=== PATIENT | male | born 1985 | race Caucasian/White ===

== ENCOUNTER 2018-01-22 16:00 | Emergency (ER) | payer MEDICAID ==
[2018-01-22] MEDS ORDERED: risperiDONE 1 MG TABLET PO STA (18:34)
--- NOTE | 2018-01-22 18:37 | ED Physician Documentation ---
PD HPI MHE - Stated complaint Stated Complaint: MHE/SI - Chief complaint Chief Complaint: MHE - History obtained from History obtained from: Patient - History of Present Illness Primary symptom: Anxiety (This is a 32-year-old gentleman with history of bipolar disorder, no current psychiatric follow-up here as [place]. He has been manic lately and is having a lot of anxiety all day and every day. Vague suicidal ideation without plan. Wants a mood stabilizer and follow-up.) Review of Systems Constitutional: denies: Fever, Chills Cardiac: denies: Palpitations Respiratory: denies: Dyspnea, Cough GI: denies: Abdominal Pain PD PAST MEDICAL HISTORY - Present Medications Home Medications: Ambulatory Orders Medication Instructions Recorded Confirmed Risperidone [Risperdal] 2 mg PO QPM #30 tablet 01/22/18 - Allergies Allergies/Adverse Reactions: Allergies Allergy/AdvReac Type Severity Reaction Status Date / Time No Known Drug Allergies Allergy Verified 01/22/18 16:46 PD ED PE NORMAL - Vitals Vital signs reviewed: Yes - General General: Alert and oriented X 3, No acute distress - HEENT HEENT: PERRL, EOMI - Neuro Neuro: Alert and oriented X 3, cotton expert 2-12 intact Eye Opening: Spontaneous Motor: Obeys Commands Verbal: Oriented GCS Score: 15 - Psych Psych: Normal mood, Normal affect Results - Vitals Vitals: Vital Signs - 24 hr 01/22/18 01/22/18 16:39 18:49 Temperature 36.7 C Heart Rate 61 63 Respiratory 19 16 Rate Blood Pressure 191/122 H 201/129 H O2 Saturation 99 100 Oxygen O2 Source Room air PD MEDICAL DECISION MAKING - ED course ED course: 32-year-old who is modestly manic but very cogent. No active suicidal ideation with plan and requests outpatient treatment. We discussed options for mood stabilizers. Cost is a restriction as he does not have current insurance and he was given a foundation prescription for Risperdal which compared to most of the mood stabilizers is quite affordable. - Sepsis Event Vital Signs: Vital Signs - 24 hr 01/22/18 01/22/18 16:39 18:49 Temperature 36.7 C Heart Rate 61 63 Respiratory 19 16 Rate Blood Pressure 191/122 H 201/129 H O2 Saturation 99 100 Oxygen O2 Source Room air Departure - Departure Disposition: 01 Home, Self Care Clinical Impression: Bipolar affective disorder Condition: Good Record reviewed to determine appropriate education?: Yes Instructions: ED Manic Depression Prescriptions: Risperidone [Risperdal] 2 mg PO QPM #30 tablet Comments: Follow-up with [facility] at [phone] to schedule psychiatric care and counseling. Your blood pressure was elevated today on check into the emergency department. This does not mean that you have hypertension, it is a common phenomenon to come to the emergency department and have elevated blood pressure. I recommend that you see your primary care physician within the week to have it rechecked when you are feeling better. Discharge Date/Time: 01/22/18 18:50
[2018-01-22 18:50] VITALS: BP 201/129
== END 2018-01-22 18:50 | disposition home or self-care (01) ==
LOC: ED 16:00
DX: F31.9 Bipolar disorder, unspecified (principal); R03.0 Elevated blood-pressure reading, without diagnosis of hypertension
CPT/HCPCS: 99283; A9270

== ENCOUNTER 2018-03-02 20:43 | Emergency (ER) | payer MEDICAID ==
--- NOTE | 2018-03-02 20:49 | ED Physician Documentation ---
PD HPI MHE - Stated complaint Stated Complaint: MHE/SI - History obtained from History obtained from: Patient - History of Present Illness Primary symptom: Suicidal ideation Pain level now: 0 Recently seen: Not recently seen - Additional information Additional information: c/o gradually worsening depression and suicidal thoughts. T+R from this ED last month, was prescribed risperdal which he took as prescribed and has since run out; he says he did not feel any improvement with this medication. He also was seen at [facility] ED a few weeks ago, was prescribed 6 tablets of a benzodiazepine which provided some relief but he had to take split doses due to the small amount prescribed. He has been seen at [facility], but cannot be seen by a prescribing practitioner until he is established with a general practitioner, and his initial appointment to establish with a PMD isn't for another couple of weeks. Tonight, he had increasing thoughts of suicide and he began to formulate specific plans, researching ways to commit suicide and was specifically pondering hanging himself. He told his brother he was having these thoughts, and brother drove patient to ED for evaluation. Review of Systems Cardiac: reports: Reviewed and negative Respiratory: reports: Reviewed and negative GI: reports: Reviewed and negative Neurologic: denies: Headache Psychiatric: reports: Depressed, Suicidal, Anxiety, Insomnia. denies: Homicidal, Hallucinations, Delusions PD PAST MEDICAL HISTORY - Past Medical History Past Medical History: No - Past Surgical History Past Surgical History: No - Present Medications Home Medications: Ambulatory Orders Medication Instructions Recorded Confirmed Risperidone [Risperdal] 2 mg PO QPM #30 tablet 01/22/18 - Allergies Allergies/Adverse Reactions: Allergies Allergy/AdvReac Type Severity Reaction Status Date / Time No Known Drug Allergies Allergy Verified 03/02/18 21:02 PD ED PE NORMAL - Vitals Vital signs reviewed: Yes - General General: Alert and oriented X 3, No acute distress, Well developed/nourished - HEENT HEENT: PERRL, EOMI, Moist mucous membranes - Cardiac Cardiac: RRR, No murmur - Respiratory Respiratory: No respiratory distress, Clear bilaterally - Abdomen Abdomen: Soft, Non tender - Derm Derm: Normal color, Warm and dry - Extremities Extremities: No edema - Neuro Neuro: Alert and oriented X 3, manager integrity 2-12 intact, No motor deficit, No sensory deficit, Normal speech Eye Opening: Spontaneous Motor: Obeys Commands Verbal: Oriented GCS Score: 15 PD ED PE EXPANDED - Psych Psych: Depressed. No: Intoxicated / AOB Results - Vitals Vitals: Vital Signs - 24 hr 03/02/18 03/03/18 03/03/18 20:50 08:39 11:11 Temperature 36.0 C L Heart Rate 50 L 90 90 Respiratory 20 16 18 Rate Blood Pressure 174/102 H 177/100 H 180/99 H O2 Saturation 100 100 03/03/18 13:00 Temperature Heart Rate 90 Respiratory 16 Rate Blood Pressure 178/100 H O2 Saturation Oxygen O2 Source Room air - Labs Labs: Laboratory Tests 03/02/18 03/02/18 03/02/18 21:00 21:13 21:13 WBC 6.8 RBC 4.68 L Hgb 13.0 L Hct 38.6 L MCV 82.4 MCH 27.7 MCHC 33.6 RDW 13.8 Plt Count 192 MPV 8.0 Neut # (Auto) 3.0 Lymph # (Auto) 2.5 Payne # (Auto) 0.6 Eos # (Auto) 0.7 Baso # (Auto) 0.0 Absolute Nucleated RBC 0.00 Nucleated RBC % 0.0 Sodium 137 Potassium 3.4 L Chloride 101 Carbon Dioxide 30 Anion Gap 6.0 BUN 15 Creatinine 1.0 Estimated GFR (MDRD) 88 L Glucose 79 Calcium 8.8 Urine Color Urine Clarity Urine pH Ur Specific [place] Urine Protein Urine Glucose (UA) Urine Ketones Urine Occult Blood Urine Nitrite Urine Bilirubin Urine Urobilinogen Ur Leukocyte Esterase Ur Microscopic Review Salicylates Urine Opiates Screen NEGATIVE Ur Oxycodone Screen NEGATIVE Urine Methadone Screen NEGATIVE Ur Propoxyphene Screen NEGATIVE Acetaminophen Ur Barbiturates Screen NEGATIVE Ur Tricyclics Screen NEGATIVE Ur Phencyclidine Scrn NEGATIVE Ur Amphetamine Screen NEGATIVE U Methamphetamines Scrn NEGATIVE U Benzodiazepines Scrn NEGATIVE Urine Cocaine Screen NEGATIVE U Cannabinoids Screen POSITIVE H Ethyl Alcohol < 5.0 03/02/18 03/03/18 21:13 01:40 WBC RBC Hgb Hct MCV MCH MCHC RDW Plt Count MPV Neut # (Auto) Lymph # (Auto) Payne # (Auto) Eos # (Auto) Baso # (Auto) Absolute Nucleated RBC Nucleated RBC % Sodium Potassium Chloride Carbon Dioxide Anion Gap BUN Creatinine Estimated GFR (MDRD) Glucose Calcium Urine Color YELLOW Urine Clarity CLEAR Urine pH 5.5 Ur Specific [place] 1.020 Urine Protein NEGATIVE Urine Glucose (UA) NEGATIVE Urine Ketones NEGATIVE Urine Occult Blood NEGATIVE Urine Nitrite NEGATIVE Urine Bilirubin NEGATIVE Urine Urobilinogen 0.2 (NORMAL) Ur Leukocyte Esterase NEGATIVE Ur Microscopic Review NOT INDICATED Salicylates < 6.0 Urine Opiates Screen Ur Oxycodone Screen Urine Methadone Screen Ur Propoxyphene Screen Acetaminophen < 10 L Ur Barbiturates Screen Ur Tricyclics Screen Ur Phencyclidine Scrn Ur Amphetamine Screen U Methamphetamines Scrn U Benzodiazepines Scrn Urine Cocaine Screen U Cannabinoids Screen Ethyl Alcohol PD MEDICAL DECISION MAKING - ED course Complexity details: reviewed old records, reviewed results, re-evaluated patient, considered differential, d/w patient ED course: Telepsych consult obtained; they recommend inpatient placement. Also lorazepam 1 mg PO Q6 hours PRN anxiety/panic. Shortly after the telepsych consult, I reevaluated patient, and he was visibly anxious, although remained polite and conversant. Given 1mg PO ativan with good effect, per patient report. Will consult SW in AM for placement. S/O to Dr. Gleason at 7 AM pending SW consult Departure - Departure Disposition: 65 Psych Hosp/Unit DC/Xfer Clinical Impression: Suicidal ideation Depression Qualifiers: Depression Type: unspecified Qualified Code(s): F32.9 - Major depressive disorder, single episode, unspecified Condition: Stable Discharge Date/Time: 03/03/18 13:25
[2018-03-02 21:17] LABS: MUDS CUTOFF CONCENTRATIONS CUTOFF CONC BELOW:
[2018-03-02 21:18] LABS: BASOPHILS % (AUTO) 0.7 %; EOSINOPHILS # (AUTO) 0.7 10^3/uL (0.0-0.7); EOSINOPHILS % (AUTO) 9.6 %; LYMPHOCYTES # (AUTO) 2.5 10^3/uL (1.5-3.5); LYMPHOCYTES % (AUTO) 37.4 %; MEAN CORPUSCULAR HEMOGLOBIN 27.7 pg (27.0-31.0); MEAN CORPUSCULAR HGB CONC 33.6 g/dL (32.0-36.0); MEAN CORPUSCULAR VOLUME 82.4 fL (80.0-94.0); MONOCYTES # (AUTO) 0.6 10^3/uL (0.0-1.0); MONOCYTES % (AUTO) 8.9 %; NEUTROPHILS % (AUTO) 43.4 %; PLT - PLATELET COUNT 192 10^3/uL (130-450); RED BLOOD COUNT 4.68 10^6/uL (4.70-6.10); RED CELL DISTRIBUTION WIDTH 13.8 % (12.0-15.0); WHITE BLOOD COUNT 6.8 x10^3/uL (4.8-10.8)
[2018-03-02 21:28] LABS: BUN - BLOOD UREA NITROGEN 15 mg/dL (6-20); CALCIUM 8.8 mg/dL (8.5-10.3); CARBON DIOXIDE - CO2 30 mmol/L (21-32); CHLORIDE 101 mmol/L (101-111); GFR - MDRD 88 (>89); GLUCOSE 79 mg/dL (70-100); SODIUM 137 mmol/L (135-145)
[2018-03-02 21:33] LABS: AMPHETAMINE SCREEN,URINE NEGATIVE (NEGATIVE); BENZODIAZEPINES SCREEN, URINE NEGATIVE (NEGATIVE); COCAINE SCREEN URINE NEGATIVE (NEGATIVE); METHADONE SCREEN, URINE NEGATIVE (NEGATIVE); METHAMPHETAMINES SCREEN, URINE NEGATIVE (NEGATIVE); OPIATE SCREEN, URINE NEGATIVE (NEGATIVE); OXYCODONE SCREEN, URINE NEGATIVE (NEGATIVE); PROPOXYPHENE SCREEN, URINE NEGATIVE (NEGATIVE); TRICYCLIC ANTIDEPRESSANT,URINE NEGATIVE (NEGATIVE)
[2018-03-02 21:48] LABS: ACETAMINOPHEN < 10 ug/mL (10-30); SALICYLATE < 6.0 mg/dL
--- NOTE | 2018-03-03 00:06 | TELEPSYCH PHYS NOTE ---
Telepsych Note - CHIEF COMPLAINT/HX OF PRESENT ILLNESS Cheif Complaint and History of Present Illness: CC: depression, anxiety, SI HPI: Pt seen via televideo with the help of onsite staff. Pt is a 32yo male with a hx of Bipolar Disorder and Anxiety. Pt presented to the ED, accompanied by his brother due to suicidal ideation. Pt notes a several month period of worsening depressive and anxiety sxs. States the anxiety sxs have significantly worsened in the past few weeks. Multiple stressors with poor coping including not seeing his children for over a year. Pt reports every day he wakes up regretting that he did. Pt reports that his anxiety is more debilitating than depression. States it feels like someone is standing on my chest constantly. Reports he would prefer to go to sleep and never wake up. it would be good if I had cancer. States he has been contemplating suicide and specifically hanging himself. On ROS, pt denies AVHs, delusions nor HI. Pt reports continued SI with potential plan to hang himself. Pt requires acute inpt psychiatric admission for safety, stabilization and treatment. Pt is voluntary for inpt treatment. - VIOLENCE/LEGAL/COLLATERAL Violence - Legal - Collateral: Denies a prior hx of violence nor forensic hx. - PSYCHIATRIC HX/TREATMENT HX Psychiatric: Anxiety, Bipolar disorder, Panic attacks - DRUG/ALCOHOL HX Substance Use and Type: Marijuana - MEDICAL HX Does the pt have a hx of MRSA?: No Neurological History: None Eyes, Ears, Nose, Throat: None Cardiovascular: None Respiratory: None Skin: None Endocrine/Autoimmune: None Gastrointestinal: None Urinary: None Musculoskeletal: None Blood Disorders: None PMH Other: "Blood pressure problems" - ALLERGIES Allergies (as last confirmed): Allergies Allergy/AdvReac Type Severity Reaction Status Date / Time No Known Drug Allergies Allergy Verified 03/02/18 21:02 - FAMILY PSYCH/SUICIDE/SOCIAL HX-MENTAL Family - Suicide - Social Hx and Mental Status Exam: NO reported family hx of mental illness nor suicide attempts. - TREATMENT/PHARMACOLOGICAL RECOMMENDATION Treatment - Pharmacological - Therapy Recommendations: Patient requieres acute inpt psychiatric admission For safety, stabilization and treatment Pt is volutuntary for inpt treatment. Provide Ativan 1mg po Q 6 hours PRN anxiety/panic sxs. - TIME SPENT & PROVIDER LOCATION Telepsych consultation conducted via videoconferencing: Yes List names and roles of persons who participated in consult: Juan José Felder (patient), Mary (psychiatrist) Telepsych Provider Location: [place] Time Telepsych consult began: 02:55 Time Telepsych consult completed: 03:10
[2018-03-03] MEDS ORDERED: LORazepam 0.5 MG TABLET PO STA ×3 (00:21→10:27)
[2018-03-03 01:44] LABS: BILIRUBIN,URINE NEGATIVE (NEGATIVE); GLUCOSE, URINE (UA) NEGATIVE (NEGATIVE); KETONES,URINE (UA) NEGATIVE (NEGATIVE); LEUKOCYTE ESTERASE, URINE NEGATIVE (NEGATIVE); NITRITE,URINE NEGATIVE (NEGATIVE); OCCULT BLOOD,URINE NEGATIVE (NEGATIVE); PH,URINE 5.5 PH (5.0-7.5); PROTEIN,URINE NEGATIVE (NEGATIVE); UROBILINOGEN,URINE 0.2 (NORMAL) E.U./dL (NORMAL)
[2018-03-03 01:51] LABS: CLARITY,URINE CLEAR (CLEAR)
--- NOTE | 2018-03-03 07:27 | ED Physician Documentation ---
History of Present Illness - Stated complaint Stated Complaint: MHE/SI - Chief complaint Chief Complaint: MHE PD PAST MEDICAL HISTORY - Past Medical History Past Medical History: No Cardiovascular: None Respiratory: None Neuro: None Endocrine/Autoimmune: None GI: None : None HEENT: None Psych: Anxiety, Bipolar disorder, Panic attacks Musculoskeletal: None Derm: None Other Past Medical History: "Blood pressure problems" - Past Surgical History Past Surgical History: No - Present Medications Home Medications: Ambulatory Orders Medication Instructions Recorded Confirmed Risperidone [Risperdal] 2 mg PO QPM #30 tablet 01/22/18 - Allergies Allergies/Adverse Reactions: Allergies Allergy/AdvReac Type Severity Reaction Status Date / Time No Known Drug Allergies Allergy Verified 03/02/18 21:02 - Social History Does the pt smoke?: Yes Smoking Status: Current every day smoker Does the pt drink ETOH?: Yes Does the pt have substance abuse?: Yes Substance Use and Type: Marijuana - Immunizations Immunizations are current?: Yes - POLST Patient has POLST: No Results - Vitals Vitals: Vital Signs - 24 hr 03/02/18 03/03/18 03/03/18 20:50 08:39 11:11 Temperature 36.0 C L Heart Rate 50 L 90 90 Respiratory 20 16 18 Rate Blood Pressure 174/102 H 177/100 H 180/99 H O2 Saturation 100 100 Oxygen O2 Source Room air - Labs Labs: Laboratory Tests 03/02/18 03/02/18 03/02/18 21:00 21:13 21:13 WBC 6.8 RBC 4.68 L Hgb 13.0 L Hct 38.6 L MCV 82.4 MCH 27.7 MCHC 33.6 RDW 13.8 Plt Count 192 MPV 8.0 Neut # (Auto) 3.0 Lymph # (Auto) 2.5 [place] # (Auto) 0.6 Eos # (Auto) 0.7 Baso # (Auto) 0.0 Absolute Nucleated RBC 0.00 Nucleated RBC % 0.0 Sodium 137 Potassium 3.4 L Chloride 101 Carbon Dioxide 30 Anion Gap 6.0 BUN 15 Creatinine 1.0 Estimated GFR (MDRD) 88 L Glucose 79 Calcium 8.8 Urine Color Urine Clarity Urine pH Ur Specific [place] Urine Protein Urine Glucose (UA) Urine Ketones Urine Occult Blood Urine Nitrite Urine Bilirubin Urine Urobilinogen Ur Leukocyte Esterase Ur Microscopic Review Salicylates Urine Opiates Screen NEGATIVE Ur Oxycodone Screen NEGATIVE Urine Methadone Screen NEGATIVE Ur Propoxyphene Screen NEGATIVE Acetaminophen Ur Barbiturates Screen NEGATIVE Ur Tricyclics Screen NEGATIVE Ur Phencyclidine Scrn NEGATIVE Ur Amphetamine Screen NEGATIVE U Methamphetamines Scrn NEGATIVE U Benzodiazepines Scrn NEGATIVE Urine Cocaine Screen NEGATIVE U Cannabinoids Screen POSITIVE H Ethyl Alcohol < 5.0 03/02/18 03/03/18 21:13 01:40 WBC RBC Hgb Hct MCV MCH MCHC RDW Plt Count MPV Neut # (Auto) Lymph # (Auto) [place] # (Auto) Eos # (Auto) Baso # (Auto) Absolute Nucleated RBC Nucleated RBC % Sodium Potassium Chloride Carbon Dioxide Anion Gap BUN Creatinine Estimated GFR (MDRD) Glucose Calcium Urine Color YELLOW Urine Clarity CLEAR Urine pH 5.5 Ur Specific [place] 1.020 Urine Protein NEGATIVE Urine Glucose (UA) NEGATIVE Urine Ketones NEGATIVE Urine Occult Blood NEGATIVE Urine Nitrite NEGATIVE Urine Bilirubin NEGATIVE Urine Urobilinogen 0.2 (NORMAL) Ur Leukocyte Esterase NEGATIVE Ur Microscopic Review NOT INDICATED Salicylates < 6.0 Urine Opiates Screen Ur Oxycodone Screen Urine Methadone Screen Ur Propoxyphene Screen Acetaminophen < 10 L Ur Barbiturates Screen Ur Tricyclics Screen Ur Phencyclidine Scrn Ur Amphetamine Screen U Methamphetamines Scrn U Benzodiazepines Scrn Urine Cocaine Screen U Cannabinoids Screen Ethyl Alcohol PD MEDICAL DECISION MAKING - ED course ED course: assumed care 7 AM 03/03 32 male to ED with depression and SI with a plan to hang himself already tx and release from 2 EDs cannot get timely outpt mental health care medically cleared by Dr Garces last night telepsych rec inpt care awaiting to place I went to see pt - he is awake cooperative RRR CTAB frustrated by the long wait for pt seen by [facility] and [facility] have beds and are reviewing case 10 AM - nurse advises facilities won't take pt until BP is down - pt states he used to take lininopril and HCTZ - gave lisinopril - also he is very anxious which is exacerbating the BP - will give ativan BP better pt accepted at [facility] completed Departure - Departure Disposition: 65 Psych Hosp/Unit DC/Xfer
[2018-03-03] MEDS ORDERED: LISINOPRIL 5 MG TABLET PO STA (10:11)
[2018-03-03 15:29] VITALS: BP 178/100
== END 2018-03-03 13:25 ==
LOC: ED 20:43
DX: F32.9 Major depressive disorder, single episode, unspecified (principal); R45.851 Suicidal ideations; F41.9 Anxiety disorder, unspecified; R03.0 Elevated blood-pressure reading, without diagnosis of hypertension; F17.200 Nicotine dependence, unspecified, uncomplicated
CPT/HCPCS: 36415; 80048; 80306; 80307; 80320; 80329; 81003; 85025; 99284; A9270; Q3014; 81001; 99283

== ENCOUNTER 2018-05-26 16:07 | Emergency (ER) | payer MEDICAID ==
[2018-05-26 16:47] LABS: BASOPHILS % (AUTO) 0.6 %; EOSINOPHILS # (AUTO) 0.6 10^3/uL (0.0-0.7); EOSINOPHILS % (AUTO) 7.1 %; HGB - HEMOGLOBIN 14.1 g/dL (14.0-18.0); LYMPHOCYTES % (AUTO) 25.7 %; MEAN CORPUSCULAR HEMOGLOBIN 27.8 pg (27.0-31.0); MEAN CORPUSCULAR HGB CONC 33.3 g/dL (32.0-36.0); MEAN CORPUSCULAR VOLUME 83.4 fL (80.0-94.0); MEAN PLATELET VOLUME 7.7 fL (7.4-11.4); MONOCYTES # (AUTO) 0.6 10^3/uL (0.0-1.0); MONOCYTES % (AUTO) 7.8 %; NEUTROPHILS # (AUTO) 4.7 10^3/uL (1.5-6.6); NEUTROPHILS % (AUTO) 58.8 %; PLT - PLATELET COUNT 260 10^3/uL (130-450); RED BLOOD COUNT 5.06 10^6/uL (4.70-6.10); RED CELL DISTRIBUTION WIDTH 13.7 % (12.0-15.0); WHITE BLOOD COUNT 7.9 x10^3/uL (4.8-10.8)
[2018-05-26 17:00] LABS: ACETAMINOPHEN < 10 ug/mL (10-30); ALBUMIN 4.3 g/dL (3.2-5.5); ALBUMIN/GLOBULIN RATIO 1.2 (1.0-2.2); ALKALINE PHOSPHATASE 41 IU/L (42-121); ALT ALANINE AMINOTRANSFERASE 18 IU/L (10-60); AST ASPARTATE AMINOTRANSFERASE 22 IU/L (10-42); BILIRUBIN,TOTAL 0.5 mg/dL (0.2-1.0); BUN - BLOOD UREA NITROGEN 16 mg/dL (6-20); CALCIUM 9.3 mg/dL (8.5-10.3); CARBON DIOXIDE - CO2 30 mmol/L (21-32); CHLORIDE 99 mmol/L (101-111); CREATININE 1.1 mg/dL (0.6-1.2); GFR - MDRD 79 (>89); GLUCOSE 104 mg/dL (70-100); LIPASE 26 U/L (22-51); SALICYLATE < 6.0 mg/dL; SODIUM 136 mmol/L (135-145); TOTAL PROTEIN 7.8 g/dL (6.7-8.2)
[2018-05-26 17:00] LABS: MUDS CUTOFF CONCENTRATIONS CUTOFF CONC BELOW:
[2018-05-26 17:02] LABS: BILIRUBIN,URINE NEGATIVE (NEGATIVE); GLUCOSE, URINE (UA) NEGATIVE (NEGATIVE); KETONES,URINE (UA) NEGATIVE (NEGATIVE); LEUKOCYTE ESTERASE, URINE NEGATIVE (NEGATIVE); NITRITE,URINE NEGATIVE (NEGATIVE); OCCULT BLOOD,URINE NEGATIVE (NEGATIVE); PROTEIN,URINE NEGATIVE (NEGATIVE); UROBILINOGEN,URINE 0.2 (NORMAL) E.U./dL (NORMAL)
[2018-05-26 17:03] LABS: CLARITY,URINE CLEAR (CLEAR)
[2018-05-26 17:24] LABS: AMPHETAMINE SCREEN,URINE NEGATIVE (NEGATIVE); BENZODIAZEPINES SCREEN, URINE NEGATIVE (NEGATIVE); COCAINE SCREEN URINE NEGATIVE (NEGATIVE); METHADONE SCREEN, URINE NEGATIVE (NEGATIVE); METHAMPHETAMINES SCREEN, URINE NEGATIVE (NEGATIVE); OPIATE SCREEN, URINE NEGATIVE (NEGATIVE); OXYCODONE SCREEN, URINE NEGATIVE (NEGATIVE); PROPOXYPHENE SCREEN, URINE NEGATIVE (NEGATIVE); TRICYCLIC ANTIDEPRESSANT,URINE NEGATIVE (NEGATIVE)
--- NOTE | 2018-05-26 20:42 | ED Physician Documentation ---
PD HPI MHE - Stated complaint Stated Complaint: SI - Chief complaint Chief Complaint: MHE - History obtained from History obtained from: Patient - History of Present Illness Primary symptom: Suicidal ideation Timing - onset: How many days ago (2) Pain level max: 0 Pain level now: 0 Severity Comments: mild Contributing factors: Family Similar symptoms before: Diagnosis Review of Systems Ten Systems: 10 systems reviewed and negative Constitutional: reports: Reviewed and negative Eyes: reports: Reviewed and negative Ears: reports: Reviewed and negative Nose: reports: Reviewed and negative Throat: reports: Reviewed and negative Cardiac: reports: Reviewed and negative Respiratory: reports: Reviewed and negative GI: reports: Reviewed and negative : reports: Reviewed and negative Skin: reports: Reviewed and negative Musculoskeletal: reports: Reviewed and negative Neurologic: reports: Reviewed and negative Psychiatric: reports: Reviewed and negative Endocrine: reports: Reviewed and negative Immunocompromised: reports: Reviewed and negative PD PAST MEDICAL HISTORY - Past Medical History Cardiovascular: None Respiratory: None Neuro: None Endocrine/Autoimmune: None GI: None : None HEENT: None Psych: Anxiety, Bipolar disorder, Panic attacks Musculoskeletal: None Derm: None Other Past Medical History: Reviewed and not pertinent - Past Surgical History Past Surgical History: No Other past surgical history: Reviewed and not pertinent - Present Medications Home Medications: Ambulatory Orders Medication Instructions Recorded Confirmed Clomipramine HCl 50 mg QPM 05/27/18 05/27/18 Clonidine HCl [Catapres] 0.2 mg PO TID 05/27/18 05/27/18 Metoprolol Succinate [Toprol Xl] 50 mg PO DAILY 05/27/18 05/27/18 OLANZapine [Olanzapine] 5 mg PO BID 05/27/18 05/27/18 Trazodone HCl 100 mg QPM PRN 05/27/18 05/27/18 - Allergies Allergies/Adverse Reactions: Allergies Allergy/AdvReac Type Severity Reaction Status Date / Time No Known Drug Allergies Allergy Verified 03/02/18 21:02 - Living Situation Living Situation: reports: Alone Living Arrangement: reports: At home - Social History Does the pt smoke?: Yes Smoking Status: Current every day smoker Does the pt drink ETOH?: Yes Does the pt have substance abuse?: Yes - Family History Family history: reports: Other (Reviewed and not pertinent) - Immunizations Immunizations are current?: Yes - POLST Patient has POLST: No PD ED PE NORMAL - Vitals Vital signs reviewed: Yes - General General: Alert and oriented X 3, No acute distress - HEENT HEENT: PERRL - Neck Neck: Supple, no meningeal sign - Cardiac Cardiac: RRR, No murmur - Respiratory Respiratory: Clear bilaterally - Abdomen Abdomen: Normal bowel sounds, Soft, Non tender, Non distended - Derm Derm: Warm and dry - Extremities Extremities: No deformity - Neuro Neuro: Alert and oriented X 3 - Psych Psych: Normal mood, Normal affect Results - Vitals Vitals: Vital Signs - 24 hr 05/26/18 05/26/18 05/26/18 16:19 19:31 23:48 Temperature 36.8 C Heart Rate 80 66 81 Respiratory 18 18 16 Rate Blood Pressure 157/109 H 185/109 H 148/100 H O2 Saturation 99 98 99 05/27/18 05/27/18 05/27/18 06:43 10:42 12:15 Temperature Heart Rate 97 95 87 Respiratory 16 18 20 Rate Blood Pressure 160/103 H 186/110 H 170/104 H O2 Saturation 100 100 98 05/27/18 13:23 Temperature Heart Rate 86 Respiratory 16 Rate Blood Pressure 141/95 H O2 Saturation Oxygen O2 Source Room air - Labs Labs: Laboratory Tests 05/26/18 05/26/18 05/26/18 16:40 16:40 16:40 WBC 7.9 RBC 5.06 Hgb 14.1 Hct 42.2 MCV 83.4 MCH 27.8 MCHC 33.3 RDW 13.7 Plt Count 260 MPV 7.7 Neut # (Auto) 4.7 Lymph # (Auto) 2.0 [place] # (Auto) 0.6 Eos # (Auto) 0.6 Baso # (Auto) 0.0 Absolute Nucleated RBC 0.01 Nucleated RBC % 0.1 Sodium 136 Potassium 3.8 Chloride 99 L Carbon Dioxide 30 Anion Gap 7.0 BUN 16 Creatinine 1.1 Estimated GFR (MDRD) 79 L Glucose 104 H Calcium 9.3 Total Bilirubin 0.5 AST 22 ALT 18 Alkaline Phosphatase 41 L Total Protein 7.8 Albumin 4.3 Globulin 3.5 Albumin/Globulin Ratio 1.2 Lipase 26 TSH 1.48 Urine Color Urine Clarity Urine pH Ur Specific [place] [employer] Urine Protein Urine Glucose (UA) Urine Ketones Urine Occult Blood Urine Nitrite Urine Bilirubin Urine Urobilinogen Ur Leukocyte Esterase Ur Microscopic Review Urine Culture Comments Salicylates < 6.0 Urine Opiates Screen Ur Oxycodone Screen Urine Methadone Screen Ur Propoxyphene Screen Acetaminophen < 10 L Ur Barbiturates Screen Ur Tricyclics Screen Ur Phencyclidine Scrn Ur Amphetamine Screen U Methamphetamines Scrn U Benzodiazepines Scrn Urine Cocaine Screen U Cannabinoids Screen Ethyl Alcohol < 5.0 05/26/18 16:55 WBC RBC Hgb Hct MCV MCH MCHC RDW Plt Count MPV Neut # (Auto) Lymph # (Auto) [place] # (Auto) Eos # (Auto) Baso # (Auto) Absolute Nucleated RBC Nucleated RBC % Sodium Potassium Chloride Carbon Dioxide Anion Gap BUN Creatinine Estimated GFR (MDRD) Glucose Calcium Total Bilirubin AST ALT Alkaline Phosphatase Total Protein Albumin Globulin Albumin/Globulin Ratio Lipase TSH Urine Color YELLOW Urine Clarity CLEAR Urine pH 6.0 Ur Specific [employer] 1.025 Urine Protein NEGATIVE Urine Glucose (UA) NEGATIVE Urine Ketones NEGATIVE Urine Occult Blood NEGATIVE Urine Nitrite NEGATIVE Urine Bilirubin NEGATIVE Urine Urobilinogen 0.2 (NORMAL) Ur Leukocyte Esterase NEGATIVE Ur Microscopic Review NOT INDICATED Urine Culture Comments NOT INDICATED Salicylates Urine Opiates Screen NEGATIVE Ur Oxycodone Screen NEGATIVE Urine Methadone Screen NEGATIVE Ur Propoxyphene Screen NEGATIVE Acetaminophen Ur Barbiturates Screen NEGATIVE Ur Tricyclics Screen NEGATIVE Ur Phencyclidine Scrn NEGATIVE Ur Amphetamine Screen NEGATIVE U Methamphetamines Scrn NEGATIVE U Benzodiazepines Scrn NEGATIVE Urine Cocaine Screen NEGATIVE U Cannabinoids Screen POSITIVE H Ethyl Alcohol PD MEDICAL DECISION MAKING - ED course Complexity details: reviewed old records, reviewed results, re-evaluated patient, considered differential, d/w patient, d/w family, d/w financial services consultant ED course: 32-year-old male with suicidal ideation. Patient placed voluntarily in psychiatric facility. Transferred by BLS. Departure - Departure Disposition: 65 Psych Hosp/Unit DC/Xfer Clinical Impression: Suicidal ideation Condition: Serious
[2018-05-27] MEDS ORDERED: LORazepam 0.5 MG TABLET PO STA (12:00)
[2018-05-27] MEDS ORDERED: NICOTINE 14 MG PATCH TOP STA (12:10)
[2018-05-27 16:38] VITALS: BP 139/85
== END 2018-05-27 17:00 ==
LOC: ED 16:07
DX: R45.851 Suicidal ideations (principal); F41.9 Anxiety disorder, unspecified; F31.9 Bipolar disorder, unspecified; F17.200 Nicotine dependence, unspecified, uncomplicated
CPT/HCPCS: 36415; 80053; 80306; 80307; 80320; 80329; 81003; 83690; 84443; 85025; 99284; 99285; A9270; 81001; 87086